=== PATIENT | male | born 2000 | race Caucasian/White ===

== ENCOUNTER 2022-04-08 20:27 | Outpatient (CLI) | payer MEDICAID | END 2022-04-09 06:15 | disposition home or self-care (01) | LOC: SLEEP 20:27 | PROVIDERS: ATTEND Nurse Practitioner Family | DX: G47.39 Other sleep apnea (principal); I10 Essential (primary) hypertension | CPT/HCPCS: 95811 ==

== ENCOUNTER 2022-08-22 09:13 | Emergency (ER) | payer MEDICAID ==
[~2022-08-22] VITALS: Ht 185 cm; Wt 158.0 kg
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
[2022-08-22] MEDS ORDERED: ORPHENADRINE 60 MG/2 ML (NORFLEX) AMP (ED ONLY) IM ONE (09:45)
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
[2022-08-22 10:12] VITALS: BP 145/88
== END 2022-08-22 10:11 | disposition home or self-care (01) ==
LOC: EDUNIT# 09:13 → ER 09:17
DX: M54.50 Low back pain, unspecified (principal); Z28.311 Partially vaccinated for COVID-19; V23.49XA Other motorcycle driver injured in collision with car, pick-up truck or van in traffic accident, initial encounter; Y92.410 Unspecified street and highway as the place of occurrence of the external cause
CPT/HCPCS: 72100

== ENCOUNTER 2022-08-23 04:58 | Emergency (ER) | payer MEDICAID | END 2022-08-23 05:30 | disposition left against medical advice (07) | LOC: EDUNIT# 04:58 → ER 05:02 | DX: K08.89 Other specified disorders of teeth and supporting structures (principal) ==

== ENCOUNTER 2022-10-03 21:13 | Emergency (ER) | payer MEDICAID ==
[~2022-10-03] VITALS: Ht 185.4 cm; Wt 124.7 kg
[2022-10-03] MEDS ORDERED: HYDROcodone/APAP 7.5 MG/325 MG (LORTAB, LORCET PLUS) TABLET PO STA (21:30)
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
[2022-10-03] MEDS ORDERED: TETANUS,DIPTH,PERTUSS P/F (BOOSTRIX) 0.5 ML VIAL IM ONE (21:45)
--- NOTE | 2022-10-03 21:56 | Diagnostic Imaging Report ---
INDICATION: ankle pain COMPARISON: None. FINDINGS: Three radiographic views of the right ankle were obtained. There is subtle extraosseous calcification adjacent to the distal margins of the medial malleolus suspicious for avulsion fracture. No other acute osseous abnormality is seen. Joint spaces are maintained. There is mild generalized soft tissue swelling. No unexpected radiopaque foreign bodies are identified. IMPRESSION: 1. Findings suggestive of acute avulsion injury to the medial malleolus. Dictated by: Dictated on workstation # [id number]
[2022-10-03 22:19] VITALS: BP 119/80
== END 2022-10-03 22:19 | disposition home or self-care (01) ==
LOC: EDUNIT# 21:13 → ER 21:16
DX: S82.891A Other fracture of right lower leg, initial encounter for closed fracture (principal); S80.212A Abrasion, left knee, initial encounter; S80.211A Abrasion, right knee, initial encounter; E66.9 Obesity, unspecified; Z68.42 Body mass index [BMI] 45.0-49.9, adult; Z23 Encounter for immunization; W01.0XXA Fall on same level from slipping, tripping and stumbling without subsequent striking against object, initial encounter
CPT/HCPCS: 73610; 99282; L2114; 90715

== ENCOUNTER → 2022-10-12 | Outpatient (CLI) | payer MEDICAID | LOC: ORTHO 13:27 | PROVIDERS: ATTEND Orthopaedic Surgery | DX: S93.409A Sprain of unspecified ligament of unspecified ankle, initial encounter (principal) | CPT/HCPCS: 99203 ==

== ENCOUNTER 2023-03-02 16:49 | Emergency (ER) | payer MEDICAID ==
[~2023-03-02] VITALS: Ht 185.5 cm; Wt 153.9 kg
[2023-03-02 17:45] LABS: BASOPHILS # (AUTO) 0.1 10^3/uL (0.0-0.1); BASOPHILS % (AUTO) 1 % (0-10); EOSINOPHILS # (AUTO) 0.3 10^3/uL (0.0-0.3); EOSINOPHILS % (AUTO) 2 % (0-10); HEMATOCRIT 47 % (40-54); HEMOGLOBIN 14.8 g/dL (13.3-17.7); LYMPHOCYTES # (AUTO) 2.3 10^3/uL (1.0-4.0); LYMPHOCYTES % (AUTO) 15 % (12-44); MEAN CORPUSCULAR HEMOGLOBIN 26 pg (25-34); MEAN CORPUSCULAR HGB CONC 31 g/dL (32-36); MEAN CORPUSCULAR VOLUME 84 fL (80-99); MEAN PLATELET VOLUME 11.3 fL (9.0-12.2); MONOCYTES % (AUTO) 7 % (0-12); NEUTROPHILS # (AUTO) 11.3 10^3/uL (1.8-7.8); NEUTROPHILS % (AUTO) 75 % (42-75); PLATELET COUNT 329 10^3/uL (130-400)
[2023-03-02] MEDS ORDERED: NS IV 1000 ML 1,000 ML IV SCH (17:45)
[2023-03-02] MEDS ORDERED: ONDANSETRON INJECTION 4 MG/2 ML (SDV) IVP ONE (17:45)
--- NOTE | 2023-03-02 17:48 | ED Neurological Problem ---
General Chief Complaint: General Problems/Pain Stated Complaint: LOSING CONCIOUSNESS, NUMBNESS IN LT SIDE, HIGH BP Nursing Triage Note: MOTHER STATES PT HAS BEEN OUTSIDE WORKING AND HAS NOT EATEN OR DRANK ANYTHING ALL DAY. STATES HE IS DIZZY, HIGH B P, LEFT SIDE NUMBNESS THAT HAS GONE AWAY CURRENTLY AND MOTHER STATES HE HAD BEEN PASSING OUT Source: patient Exam Limitations: no limitations History of Present Illness Date Seen by Provider: Mar 02, 2023 Time Seen by Provider: 17:26 Initial Comments 23-year-old male presents to the ER with mother. Patient's mother reports that she received a phone call at 1630 and was told that her son was dizzy, had elevated blood pressure, and had left-sided numbness. She reports that when she got to him, he was white and clammy. She states that he has not eaten or had anything to drink all day, and has been working outside on a car. Patient reports that the numbness lasted for approximately 3 minutes, states that he was unable to move his left arm and leg due to weakness while he was experiencing the numbness, he states that after the numbness subsided, he was able to move his arm and leg again. Patient reports he had nausea earlier. He is also compl aining of headache, shortness of air, and mild nausea. He states that for the last week, he has had 2 episodes of diarrhea every day. He denies fever, cough, chest pain, abdominal pain. Allergies and Home Medications Allergies Coded Allergies: No Known Drug Allergies (Unverified , 08/22/22) Patient Home Medication List Home Medication List Reviewed: Yes Review of Systems Review of Systems Constitutional: see HPI Past Ojgnqkt-Ejkxum-Iddkui Hx Patient Social History Tobacco Use?: No Substance use?: No Alcohol Use?: No Immunizations Up To Date First/Initial COVID19 Vaccinat: YES Second COVID19 Vaccination Kevin: YES Third COVID19 Vaccination Date: YES Past Medical History Surgery/Hospitalization HX: HTN, BIPOLAR, ADHD, DM2 Psychosocial: Yes ADD/ADHD, Bipolar Physical Exam Vital Signs Vital Signs - First Documented 03/02/23 17:07 Temp 37.3 Pulse 97 Resp 16 B/P (MAP) 162/84 (110) Pulse Ox 96 Capillary Refill : Height, Weight, BMI Height: '" Weight: lbs. oz. 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, no motor/sensory deficits, alert, normal mood/affect, other (Disoriented to month) Crainal Nerves: normal hearing, normal speech, PERRL Coordination/Gait: normal finger to nose, normal gait Motor/Sensory: no motor deficit, no sensory deficit Skin: normal color, warm/dry Stroke NIH Stroke Scale Assessment Select: Initial Level of Consciousness: 0=Alert (0), Level of Consciousness- Questions: 1=Answers one question (1), LOC Commands: 0=Performs both tasks (0), Gaze: Normal (0), Visual Fuchs: 0=No visual loss (0), Facial Movement (Facial Paresis): 0=Normal symmetrical mnt (0), Motor Function-Arms Right: 0=No drift (0), Motor Function-Arms Left: 0=No drift (0), Motor Function-Legs Right: 0=No drift (0), Motor Function-Legs Left: 0=No drift (0), Limb Ataxia: 0=Absent (0), Sensory: 0=Normal:no loss (0), Best Language: 0=No aphasia (0), Dysarthria: 0=Normal (0), Extinction & Inattention: 0=No abnormality (0), Total: 1 Progress/Results/Core Measures Results/Orders Lab Results Laboratory Tests Test 03/02/23 17:16 03/02/23 17:48 03/02/23 18:07 03/02/23 19:07 Range/Units White Blood Count 15.0 H 4.3-11.0 10^3/uL Red Blood Count 5.64 H 4.30-5.52 10^6/uL Hemoglobin 14.8 13.3-17.7 g/dL Hematocrit 47 40-54 % Mean Corpuscular Volume 84 80-99 fL Mean Corpuscular Hemoglobin 26 25-34 pg Mean Corpuscular Hemoglobin Concent 31 L 32-36 g/dL Red Cell Distribution Width 14.6 H 10.0-14.5 % Platelet Count 329 130-400 10^3/uL Mean Platelet Volume 11.3 9.0-12.2 fL Immature Granulocyte % (Auto) 0 % Neutrophils (%) (Auto) 75 42-75 % Lymphocytes (%) (Auto) 15 12-44 % Monocytes (%) (Auto) 7 0-12 % Eosinophils (%) (Auto) 2 0-10 % Basophils (%) (Auto) 1 0-10 % Neutrophils # (Auto) 11.3 H 1.8-7.8 10^3/uL Lymphocytes # (Auto) 2.3 1.0-4.0 10^3/uL Monocytes # (Auto) 1.0 0.0-1.0 10^3/uL Eosinophils # (Auto) 0.3 0.0-0.3 10^3/uL Basophils # (Auto) 0.1 0.0-0.1 10^3/uL Immature Granulocyte # (Auto) 0.1 0.0-0.1 10^3/uL Neutrophils % (Manual) 75 % Lymphocytes % (Manual) 15 % Monocytes % (Manual) 6 % Eosinophils % (Manual) 4 % Platelet Estimate ADEQUATE Blood Morphology Comment NORMAL Sodium Level 138 135-145 MMOL/L Potassium Level 3.8 3.6-5.0 MMOL/L Chloride Level 106 98-107 MMOL/L Carbon Dioxide Level 20 L 21-32 MMOL/L Anion Gap 12 5-14 MMOL/L Blood Urea Nitrogen 8 7-18 MG/DL Creatinine 0.87 0.60-1.30 MG/DL Estimat Glomerular Filtration Rate 124 BUN/Creatinine Ratio 9 Glucose Level 87 70-105 MG/DL Calcium Level 9.5 8.5-10.1 MG/DL Corrected Calcium 9.3 8.5-10.1 MG/DL Total Bilirubin 0.7 0.1-1.0 MG/DL Aspartate Amino Transf (AST/SGOT) 58 H 5-34 U/L Alanine Aminotransferase (ALT/SGPT) 102 H 0-55 U/L Alkaline Phosphatase 116 40-136 U/L Troponin I < 0.028 <0.028 NG/ML Total Protein 7.8 6.4-8.2 GM/DL Albumin 4.3 3.2-4.5 GM/DL Glucometer 88 70-110 MG/DL Prothrombin Time 13.4 12.2-14.7 SEC INR Comment 1.0 0.8-1.4 Activated Partial Thromboplast Time 29 24-35 SEC D-Dimer 0.29 0.00-0.49 UG/ML Urine Color YELLOW Urine Clarity CLEAR Urine pH 5.5 5-9 Urine Specific [place] 1.020 1.016-1.022 Urine Protein 2+ H NEGATIVE Urine Glucose (UA) NEGATIVE NEGATIVE Urine Ketones TRACE H NEGATIVE Urine Nitrite NEGATIVE NEGATIVE Urine Bilirubin 1+ H NEGATIVE Urine Urobilinogen 0.2 < = 1.0 MG/DL Urine Leukocyte Esterase NEGATIVE NEGATIVE Urine RBC (Auto) TRACE H NEGATIVE Urine RBC 2-5 H /HPF Urine WBC 0-2 /HPF Urine Squamous Epithelial Cells 10-25 H /HPF Urine Crystals PRESENT H /LPF Urine Amorphous Sediment FEW [place] URATES H /LPF Urine Bacteria TRACE /HPF Urine Casts NONE /LPF Urine Mucus LARGE H /LPF Urine Culture Indicated NO My Orders Orders - LYNDSAY MARSHALL BRICK MASON Cbc And Automated Diff (03/02/23 17:36) Protime With Inr (03/02/23 17:36) Partial Thromboplastin Time (03/02/23 17:36) Comprehensive Metabolic Panel (03/02/23 17:36) Fibrin Degradation Products (03/02/23 17:36) Troponin I Keith (03/02/23 17:36) Ua Culture If Indicated (03/02/23 17:36) Chest 1 View, Ap/Pa Only (03/02/23 17:36) Ekg Tracing (03/02/23 17:36) Nothing By Mouth (03/02/23 Dinner) Accucheck Stat ONCE (03/02/23 17:36) Ed Iv/Invasive Line Start (03/02/23 17:36) Vital Signs Stroke Patient Q15M (03/02/23 17:36) Ct Head Wo-R/O Stroke (03/02/23 17:36) Monitor-Rhythm Ecg Trace Only (03/02/23 17:36) Dysphagia Screening Tool Q10MX1 (03/02/23 17:36) Ns Iv 1000 Ml (Ns Iv 1000 Ml) (03/02/23 17:45) Ondansetron Injection (Ondansetron Inj (03/02/23 17:45) Manual Differential (03/02/23 17:16) Ct Angio Head/Neck (03/02/23 18:06) Ct Head Perfusion W/ Contrast (03/02/23 18:15) Iohexol Injection (Omnipaque 350 Mg/Ml 1 (03/02/23 18:30) Ns (Ivpb) 100 Ml (Sodium Chloride 0.9% 1 (03/02/23 18:30) Clopidogrel Tablet (Clopidogrel Tablet) (03/02/23 20:00) Aspirin Chewable Tablet (Aspirin Chewabl (03/02/23 20:30) Medications Given in ED Vital Signs/I&O 03/02/23 03/02/23 17:07 21:35 Temp 37.3 37.3 Pulse 97 94 Resp 16 17 B/P (MAP) 162/84 (110) 144/80 Pulse Ox 96 95 Blood Pressure Mean: 110 Progress Progress Note : Progress Note Patient seen and evaluated, resting comfortably in bed, no acute distress. Based on exam and symptoms, differential diagnosis includes but is not limited to stroke, TIA, hypertension, dehydration. Stroke work-up initiated including CBC, CMP, coags, troponin, D-dimer, chest x-ray, CT head, KG. IV fluids ordered. 1815 the radiologist called to report the result of the CT scan. He reported a right anterior frontal lobe area that is concerning for acute or subacute infarct. He recommends an MRI with and without contrast. I called and spoke with Dr. Suggs, neurology at , she recommends first getting a CT angio head and neck and a CT perfusion study. This has been ordered. Chest x-ray shows no acute radiographic abnormality. 1915 CT angio and perfusion study reviewed. CT angio shows no stenosis or aneurysm of the [place], no large vessel occlusion, no stenosis or dissection of the bilateral carotid and vertebral arteries. CT perfusion study shows small area of penumbra like pattern in the anterior right frontal lobe which may represent small area of ischemia. No large core infarct is seen. I called and spoke with Dr. Suggs, neurology at , she recommends discussing with the patient tPA versus aspirin and Plavix. She also recommends an MRI. I discussed the risks versus benefits of tPA. Patient and mother agree that they would rather do aspirin and Plavix instead of tPA due to minimal symptoms. Patient does report tingling in his left hand that just started. Patient does have weakness in his left hand at this time as well. Will order the MRI. 2009 MRI was attempted, patient is too large for our MRI. I discussed with the patient the options for transfer between or [place]. Patient states he would rather go to [place]. I called [facility], and spoke with the ER physician Dr. Awan, and her neurologist Dr. Hernandez. They both agree that the patient can be transferred, but the hospitalist will need to accept the patient. I am waiting for [facility] to call back once they get a hold of the hospitalist. 2045 Dr. Coats, hospitalist at [facility], accepted patient for transfer. [facility] does have available transport. Waiting for room assignment from [facility]. Patient informed that he has been accepted to [facility]. Patient states that he is now having tingling in his left leg as well. Initial ECG Impression Date: Mar 02, 2023 Initial ECG Impression Time: 17:46 Initial ECG Rate: 94 Initial ECG Rhythm: Normal Sinus Initial ECG Intervals: Normal Initial ECG Impression: Nonspecific Changes Initial ECG Comparisson: No Previous ECG Available Diagnostic Imaging Diagonstic Imaging: CT Plain Films/CT/US/NM/MRI: head Comments [facility] [place] NAME: MOLLY GRANADOS [facility] REC#: [id number] PT STATUS: REG ER : 2000 PHYSICIAN: LYNDSAY MARSHALL APRN ADMIT DATE: 03/02/23/ER Signed Date of Exam:03/02/23 CT HEAD WO-R/O STROKE EXAMINATION: CT head without contrast. TECHNIQUE: Multiple contiguous axial images were obtained through the brain without the use of intravenous contrast. All CT scans use one or more of the following dose optimizing techniques: automated exposure control, MA and/or KvP adjustment based on patient size and exam type or iterative reconstruction. HISTORY: left arm and leg numbness and weakness COMPARISON: None available. FINDINGS: The ventricles and sulci are normal. There is right frontal lobe hypoattenuation involving the right frontal lobe cortex. No acute intracranial hemorrhage or abnormal extra-axial fluid collections are present. No hyperdense vessel. The calvarium is intact. The mastoid air cells are clear. The visualized paranasal sinuses are clear. The orbits are normal. IMPRESSION: 1. Hypoattenuation within the anterior right frontal lobe involving the anterior cortex. This finding is nonspecific but could be seen with acute or subacute infarct in the appropriate clinical setting. MRI with and without IV contrast would be more helpful for characterization of this location. Critical finding. Results communicated to Lyndsay Marshall by Dr. Joe Flores at 6:03 PM on 03/02/2023. Dictated by: Dictated on workstation # [id number] Dict: 03/02/231758 Trans: 03/02/231818 [facility] [id number] Interpreted by: LUIS FLORES DO Electronically signed by: LUIS FLORES DO 03/02/231818 Diagonstic Imaging: CT Plain Films/CT/US/NM/MRI: head, other (neck) Comments [facility] [place] NAME: MOLLY GRANADOS [facility] REC#: [id number] PT STATUS: REG ER : 2000 PHYSICIAN: LYNDSAY MARSHALL APRN ADMIT DATE: 03/02/23/ER Signed Date of Exam:03/02/23 CT ANGIO HEAD/NECK PROCEDURE: CT angiography of the head and CT angiography of the neck with and without contrast. TECHNIQUE: Contiguous noncontrast images were obtained from the skull base through the vertex. After intravenous contrast administration, helical CT angiography of the neck was performed. Source data was reformatted into 3D MIP projections. Delayed post contrast acquisition was also obtained. Auto Exposure Controls were utilized during the CT exam to meet ALARA standards for radiation dose reduction. INDICATION: Dizziness. Left-sided numbness. Stroke. COMPARISON: CT head performed earlier the same date. FINDINGS: CTA Neck: The visualized portions of the aortic arch demonstrate no evidence of aneurysm or dissection. There is conventional branching pattern of the great vessels of the aorta. The brachiocephalic artery is normal in course and caliber. The right and left common carotid origins are unremarkable. The origin of the left subclavian artery is patent. The common carotid arteries and internal carotid arteries demonstrate a normal course. No stenosis or dissection in the carotid systems. The external carotid arteries are patent and unremarkable. The vertebral arteries are codominant. The origin of the right vertebral artery is seen and is unremarkable. The origin of the left vertebral artery is seen and is unremarkable. There is no focal stenosis seen within the neck. There is no dissection. The vertebral arteries are well visualized to up to the level of the basilar artery. The osseous structures of the cervical spine are unremarkable. Included views through the lung apices demonstrate no focal consolidation. CTA brain: No stenosis or aneurysm in the intracranial portion of the bilateral ICA. No stenosis is seen in the bilateral anterior, middle, and posterior cerebral arteries. There is origin of the left [employer]. No evidence of aneurysm the [place]. In the posterior circulation, both of the vertebral arteries demonstrate normal opacification. Both the right and left PICA arteries are identified. The basilar artery is normal in course and caliber. The terminal branch vessels including the superior cerebellar arteries unremarkable. IMPRESSION: 1. No stenosis or aneurysm in the [place]. No large vessel occlusion. 2. No stenosis or dissection the bilateral carotid and vertebral arteries. Dictated by: Dictated on workstation # [id number] Dict: 03/02/231899 Trans: 03/02/231905 [facility] [id number] Interpreted by: LIMA GREEN DO Electronically signed by: LIMA GREEN DO 03/02/231905 Diagonstic Imaging: CT Plain Films/CT/US/NM/MRI: head (perfusion) Comments [facility] [place] NAME: MOLLY GRANADOS [facility] REC#: [id number] PT STATUS: REG ER : 2000 PHYSICIAN: LYNDSAY MARSHALL APRN ADMIT DATE: 03/02/23/ER Signed Date of Exam:03/02/23 CT HEAD PERFUSION W/ CONTRAST TECHNIQUE: CT cerebral perfusion study was performed using a dual slab technique. Post processing was performed using the RAPID software. 45 mL of Omnipaque 350 was administered. REASON FOR EXAM: Dizziness. Left-sided numbness. COMPARISON: CT head performed the same date. FINDINGS: There is no significant motion artifact. The arterial inflow and venous outflow graphs are adequate. The volume of parenchyma demonstrating cerebral blood flow of less than 30% is equal to 0 mL. The volume of parenchyma showing a Tmax greater than 6 seconds is 12 mL. Parenchyma are demonstrated Tmax greater than 8 seconds equals 11 mL, and greater than 10 seconds 6 mL. No core infarct. There is a small area of penumbra-like pattern in the anterior right frontal lobe. IMPRESSION: 1. Small area of penumbra-like pattern in the anterior right frontal lobe, which may represent a small area of ischemia. No large core infarct is seen. Consider MRI brain to further evaluate. Dictated by: Dictated on workstation # [id number] Dict: 03/02/23 1849 Trans: 03/02/231857 [id number] Interpreted by: LIMA GREEN DO Electronically signed by: LIMA GREEN DO 03/02/231857 Diagonstic Imaging: Xray Plain Films/CT/US/NM/MRI: chest Comments [facility] [place] NAME: MOLLY GRANADOS [facility] REC#: [id number] PT STATUS: REG ER : 2000 PHYSICIAN: LYNDSAY MARSHALL APRN ADMIT DATE: 03/02/23/ER Signed Date of Exam:03/02/23 CHEST 1 VIEW, AP/PA ONLY EXAMINATION: Chest 1 view. HISTORY: Weakness COMPARISON: None available. FINDINGS: Heart size and pulmonary vasculature are normal. The lungs are clear without consolidation, pleural effusion, or pneumothorax. The osseous structures are intact. IMPRESSION: No acute radiographic abnormality in the chest. Dictated by: Dictated on workstation # [id number] Dict: 03/02/23 180 Trans: 03/02/231818 [facility] [id number] Interpreted by: LUIS FLORES DO Electronically signed by: LUIS FLORES DO 03/02/231818 Departure Impression Primary Impression: Ischemic stroke Disposition: 02 XFER SHT-TRM HOSP Condition: Stable Transfer Transfer Reason: Exceeds level of care Time Spoke to Accepting Phy: 20:[address] Coats, hospitalist at [facility]. Transfer Time: 20:57 Transfer Facility: [facility] Method of Transfer: EMS Departure-Patient Inst. Referrals: MATT BONDS APRN (PCP/Family) Primary Care Physician LYNDSAY MARSHALL APRN Mar 02, 2023 17:48
[2023-03-02 17:52] LABS: ALBUMIN 4.3 GM/DL (3.2-4.5)
[2023-03-02 17:53] LABS: CHLORIDE 106 MMOL/L (98-107); POTASSIUM 3.8 MMOL/L (3.6-5.0); SODIUM 138 MMOL/L (135-145)
[2023-03-02 17:54] LABS: CALCIUM 9.5 MG/DL (8.5-10.1)
[2023-03-02 17:55] LABS: GLUCOSE 87 MG/DL (70-105); TOTAL PROTEIN 7.8 GM/DL (6.4-8.2)
[2023-03-02 17:56] LABS: CARBON DIOXIDE 20 MMOL/L (21-32)
[2023-03-02 17:57] LABS: BILIRUBIN,TOTAL 0.7 MG/DL (0.1-1.0)
[2023-03-02 17:58] LABS: ALKALINE PHOSPHATASE 116 U/L (40-136)
[2023-03-02 17:59] LABS: CREATININE SERUM 0.87 MG/DL (0.60-1.30); GFR ESTIMATED 124
[2023-03-02 18:00] LABS: BUN/CREATININE RATIO 9
[2023-03-02 18:02] LABS: ALANINE AMINOTRANSFERASE 102 U/L (0-55)
--- NOTE | 2023-03-02 18:06 | Diagnostic Imaging Report ---
EXAMINATION: Chest 1 view. HISTORY: Weakness COMPARISON: None available. FINDINGS: Heart size and pulmonary vasculature are normal. The lungs are clear without consolidation, pleural effusion, or pneumothorax. The osseous structures are intact. IMPRESSION: No acute radiographic abnormality in the chest. Dictated by: Dictated on workstation # [id number]
--- NOTE | 2023-03-02 18:07 | Diagnostic Imaging Report ---
EXAMINATION: CT head without contrast. TECHNIQUE: Multiple contiguous axial images were obtained through the brain without the use of intravenous contrast. All CT scans use one or more of the following dose optimizing techniques: automated exposure control, MA and/or KvP adjustment based on patient size and exam type or iterative reconstruction. HISTORY: left arm and leg numbness and weakness COMPARISON: None available. FINDINGS: The ventricles and sulci are normal. There is right frontal lobe hypoattenuation involving the right frontal lobe cortex. No acute intracranial hemorrhage or abnormal extra-axial fluid collections are present. No hyperdense vessel. The calvarium is intact. The mastoid air cells are clear. The visualized paranasal sinuses are clear. The orbits are normal. IMPRESSION: 1. Hypoattenuation within the anterior right frontal lobe involving the anterior cortex. This finding is nonspecific but could be seen with acute or subacute infarct in the appropriate clinical setting. MRI with and without IV contrast would be more helpful for characterization of this location. Critical finding. Results communicated to Lyndsay Bruno by Dr. Joe Lopez at 6:03 PM on 03/02/2023. Dictated by: Dictated on workstation # [id number]
[2023-03-02 18:14] LABS: EOSINOPHILS % (MANUAL) 4 %; LYMPHOCYTES % (MANUAL) 15 %; MONOCYTES % (MANUAL) 6 %; NEUTROPHILS % (MANUAL) 75 %; PLATELET ESTIMATE ADEQUATE; RBC MORPH NORMAL
[2023-03-02 18:30] LABS: PROTHROMBIN TIME PATIENT 13.4 SEC (12.2-14.7)
[2023-03-02] MEDS ORDERED: IOHEXOL 350 MG/ML 150 ML (OMNIPAQUE 350) VIAL IV ONE (18:30)
[2023-03-02] MEDS ORDERED: NS 100 ML (IVPB) BAG IV ONE (18:30)
[2023-03-02 18:33] LABS: FIBRIN DEGRADATION PRODUCTS 0.29 UG/ML (0.00-0.49)
--- NOTE | 2023-03-02 18:55 | Diagnostic Imaging Report ---
TECHNIQUE: CT cerebral perfusion study was performed using a dual slab technique. Post processing was performed using the RAPID software. 45 mL of Omnipaque 350 was administered. REASON FOR EXAM: Dizziness. Left-sided numbness. COMPARISON: CT head performed the same date. FINDINGS: There is no significant motion artifact. The arterial inflow and venous outflow graphs are adequate. The volume of parenchyma demonstrating cerebral blood flow of less than 30% is equal to 0 mL. The volume of parenchyma showing a Tmax greater than 6 seconds is 12 mL. Parenchyma are demonstrated Tmax greater than 8 seconds equals 11 mL, and greater than 10 seconds 6 mL. No core infarct. There is a small area of penumbra-like pattern in the anterior right frontal lobe. IMPRESSION: 1. Small area of penumbra-like pattern in the anterior right frontal lobe, which may represent a small area of ischemia. No large core infarct is seen. Consider MRI brain to further evaluate. Dictated by: Dictated on workstation # [id number]
--- NOTE | 2023-03-02 19:06 | Diagnostic Imaging Report ---
PROCEDURE: CT angiography of the head and CT angiography of the neck with and without contrast. TECHNIQUE: Contiguous noncontrast images were obtained from the skull base through the vertex. After intravenous contrast administration, helical CT angiography of the neck was performed. Source data was reformatted into 3D MIP projections. Delayed post contrast acquisition was also obtained. Auto Exposure Controls were utilized during the CT exam to meet ALARA standards for radiation dose reduction. INDICATION: Dizziness. Left-sided numbness. Stroke. COMPARISON: CT head performed earlier the same date. FINDINGS: CTA Neck: The visualized portions of the aortic arch demonstrate no evidence of aneurysm or dissection. There is conventional branching pattern of the great vessels of the aorta. The brachiocephalic artery is normal in course and caliber. The right and left common carotid origins are unremarkable. The origin of the left subclavian artery is patent. The common carotid arteries and internal carotid arteries demonstrate a normal course. No stenosis or dissection in the carotid systems. The external carotid arteries are patent and unremarkable. The vertebral arteries are codominant. The origin of the right vertebral artery is seen and is unremarkable. The origin of the left vertebral artery is seen and is unremarkable. There is no focal stenosis seen within the neck. There is no dissection. The vertebral arteries are well visualized to up to the level of the basilar artery. The osseous structures of the cervical spine are unremarkable. Included views through the lung apices demonstrate no focal consolidation. CTA brain: No stenosis or aneurysm in the intracranial portion of the bilateral ICA. No stenosis is seen in the bilateral anterior, middle, and posterior cerebral arteries. There is origin of the left STUMP[employer]. No evidence of aneurysm the [place] of [place]. In the posterior circulation, both of the vertebral arteries demonstrate normal opacification. Both the right and left PICA arteries are identified. The basilar artery is normal in course and caliber. The terminal branch vessels including the superior cerebellar arteries unremarkable. IMPRESSION: 1. No stenosis or aneurysm in the [place]. No large vessel occlusion. 2. No stenosis or dissection the bilateral carotid and vertebral arteries. Dictated by: Dictated on workstation # [id number]
[2023-03-02 19:41] LABS: CLARITY,URINE CLEAR; COLOR,URINE YELLOW; GLUCOSE, URINE (UA) NEGATIVE (NEGATIVE); KETONES,URINE TRACE (NEGATIVE); NITRITE,URINE NEGATIVE (NEGATIVE); PH,URINE 5.5 (5-9); PROTEIN,URINE 2+ (NEGATIVE)
[2023-03-02 19:42] LABS: AMORPHOUS SEDIMENT,UR FEW AMOR URATES /LPF; BACTERIA,URINE TRACE /HPF; BILIRUBIN,URINE 1+ (NEGATIVE); LEUKOCYTE ESTERASE ,URINE NEGATIVE (NEGATIVE); WBC,URINE 0-2 /HPF
[2023-03-02] MEDS ORDERED: ASPIRIN enteric coated 81MG TABLET PO ONE (20:00)
[2023-03-02] MEDS ORDERED: CLOPIDOGREL 75 MG TABLET PO ONE (20:00)
[2023-03-02] MEDS ORDERED: ASPIRIN 81 MG CHEWABLE TABLET PO ONE (20:30)
[2023-03-02 21:35] VITALS: BP 144/80
== END 2023-03-02 21:36 | disposition short-term general hospital (02) ==
LOC: EDUNIT# 16:49 → ER 16:51
DX: I63.9 Cerebral infarction, unspecified (principal); I10 Essential (primary) hypertension
CPT/HCPCS: 0042T; 70450; 70496; 70498; 71045; 80053; 81000; 82947; 84484; 85007; 85027; 85379; 85610; 85730; 93005; 93041; 99285; 36415